=== PATIENT | male | born 1935 | race African-American/Black ===

== ENCOUNTER 2023-12-01 00:23 | Inpatient (IN) | payer MEDICARE, MEDICAID ==
[~2023-12-01] VITALS: Ht 188 cm; Wt 68.0 kg
[~2023-12-01 00:23] MED LIST: AMLO10TA80 MT; ASPI-1497 MT; DILT30TA37 PO; DOXA4TAB3 MT; LOSA-20 MT
[2023-12-01] MEDS: ONDANSETRON HCL 4MG/2ML INJ IV STA (00:24)
[2023-12-01] MEDS: SODIUM CHLORIDE 0.9% 1,000 ML IV ONE (00:30)
[2023-12-01 00:36] VITALS: O2SAT 98
[2023-12-01 00:53] LABS: BASOPHILS % 0.7 % (0.0-2.0); EOSINOPHILS % 0.4 % (0.0-5.0); HEMATOCRIT. 37.5 % (42.0-52.0); HEMOGLOBIN. 12.8 g/dL (14.0-18.0); LYMPHOCYTES % 16.4 % (20.0-50.0); MEAN CORPUSCULAR HEMOGLOBIN 32.5 pg (28.0-32.0); MEAN CORPUSCULAR VOLUME 95.4 fL (80.0-94.0); MEAN PLATELET VOLUME 8.8 fl (7.4-10.4); MONOCYTES % 4.6 % (2.0-8.0); NEUTROPHILS % 77.9 % (40.0-76.0); PLATELET 199 x1000/uL (130-400); RED BLOOD CELL COUNT 3.93 mill/uL (4.7-6.1); RED CELL DISTRIBUTION WIDTH 13.9 % (11.6-14.6); WHITE BLOOD COUNT 6.5 x1000/uL (4.5-11.0)
[2023-12-01 00:58] LABS: CHLORIDE 101 mEq/L (98-107); SODIUM 142 mEq/L (136-145)
[2023-12-01 00:59] LABS: CARBON DIOXIDE 30 mEq/L (21-32)
[2023-12-01 01:00] LABS: CALCIUM 10.5 mg/dL (8.7-10.4)
[2023-12-01 01:04] LABS: CREATININE 1.1 mg/dL (0.6-1.3); GLUCOSE 196 mg/dL (70-105); UREA NITROGEN BLOOD 19 mg/dL (9-23)
[2023-12-01 01:05] LABS: TROPONIN I HIGH SENSITIVITY 14 ng/L (3.0-53)
[2023-12-01 01:15] LABS: POTASSIUM 2.8 mEq/L (3.5-5.1)
[2023-12-01 01:33] LABS: INR 1.2; PROTHROMBIN TIME 13.3 sec (9.6-11.0)
[2023-12-01] MEDS: KCL 20MEQ/100ML PREMIX 100 ML IV NR ×3 (04:00→15:34)
[2023-12-01 04:21] LABS: CLARITY URINE CLEAR (CLEAR); COLOR URINE YELLOW (YELLOW); GLUCOSE URINE 1+ (NEGATIVE); KETONES URINE TRACE (NEGATIVE); LEUKOCYTE ESTERASE URINE NEGATIVE (NEGATIVE); NITRITE URINE NEGATIVE (NEGATIVE); OCCULT BLOOD URINE NEGATIVE (NEGATIVE); PROTEIN URINE 1+ (NEGATIVE); SPECIFIC GRAVITY URINE 1.017 (1.005-1.030); UROBILINOGEN URINE 0.2 E.U./dL (0.2-1.0)
[2023-12-01 04:35] LABS: BACTERIA URINE 1+; SQUAMOUS EPITHELIAL CELL URINE NONE SEEN /lpf (RARE/1+); WBC URINE 0-2 /hpf (0-2)
[2023-12-01 04:36] LABS: MUCUS URINE 1+ /lpf (NONE/TRACE)
[2023-12-01] MEDS: ACETAMINOPHEN 1000MG/100ML 100 ML IV ONE (05:28)
[2023-12-01] MEDS: MORPHINE SULFATE 4 MG/ML INJ (FOR IV/IM USE) IV ONE (05:29)
[2023-12-01] MEDS: ONDANSETRON HCL 4MG/2ML INJ IV ONE (05:29)
[2023-12-01] MEDS: DIATR MEGLU/DIATRIZOATE SOLN 120ML ONE (08:21)
[2023-12-01] MEDS ORDERED: ACETAMINOPHEN 325MG TABLET PO PRN (11:00)
[2023-12-01] MEDS ORDERED: CLONIDINE 0.1MG TABLET PO PRN (11:00)
[2023-12-01] MEDS ORDERED: ONDANSETRON HCL 4MG/2ML INJ IV PRN (11:00)
[2023-12-01] MEDS ORDERED: DEXTROSE 50% WATER 50ML SYRINGE IV PRN (11:00)
[2023-12-01] MEDS ORDERED: DEXT 5%/0.45% NACL 1000ML 1,000 ML IV SCH (11:00)
[2023-12-01] MEDS ORDERED: IPRATROPIUM/ALBUTEROL 0.5-3(2.5)MG/3ML NEB HHN PRN (11:00)
[2023-12-01] MEDS ORDERED: DOCUSATE SODIUM 100MG CAPSULE PO PRN (11:00)
[2023-12-01] MEDS: PANTOPRAZOLE SODIUM 40 MG/VIAL IV SCH (11:16)
[2023-12-01] MEDS: BLOOD SUGAR DIAGNOSTIC STRIP TEST SCH (11:49)
[2023-12-01] MEDS: INSULIN LISPRO 100 UNITS/ML SUBCUT SCH (11:50)
[2023-12-01] MEDS ORDERED: SODIUM CHL 0.45% + KCL 20MEQ/L 1,000 ML IV SCH (12:30)
[2023-12-01] MEDS ORDERED: LACTULOSE 20G/30ML UDC PO PRN (12:45)
[2023-12-01] MEDS: DEXT 5%/0.45% NACL KCL 20MEQ/L 1,000 ML IV SCH (13:27)
[2023-12-01 14:30] VITALS: BP 128/77; PULSE 74; RESP 16; TEMP 98.4
[2023-12-01 16:00] VITALS: BP 125/70; PULSE 75; RESP 16; TEMP 97.9
[2023-12-01 20:00] VITALS: BP 132/79; PULSE 71; RESP 18; TEMP 97.5
[2023-12-01 21:30] LABS: CHLORIDE 101 mEq/L (98-107); POTASSIUM 3.1 mEq/L (3.5-5.1); SODIUM 141 mEq/L (136-145)
[2023-12-01 21:31] LABS: CARBON DIOXIDE 32 mEq/L (21-32)
[2023-12-01 21:32] LABS: CALCIUM 9.8 mg/dL (8.7-10.4)
[2023-12-01 21:36] LABS: CREATININE 0.9 mg/dL (0.6-1.3); GLUCOSE 95 mg/dL (70-105)
[2023-12-01 21:37] LABS: UREA NITROGEN BLOOD 14 mg/dL (9-23)
[2023-12-01 21:39] LABS: PHOSPHORUS 2.5 mg/dL (2.5-4.9)
[2023-12-02] VITALS: BP 121/80; PULSE 65; RESP 18; TEMP 97.7
[2023-12-02 04:00] VITALS: BP 137/90; PULSE 74; RESP 17; TEMP 97.7
[2023-12-02 07:05] LABS: BASOPHILS % 0.7 % (0.0-2.0); DIFFERENTIAL COMMENT 0; EOSINOPHILS % 2.3 % (0.0-5.0); HEMATOCRIT. 38.5 % (42.0-52.0); LYMPHOCYTES % 17.9 % (20.0-50.0); MEAN CORPUSCULAR HEMOGLOBIN 31.7 pg (28.0-32.0); MEAN CORPUSCULAR HGB CONC 33.8 g/dL (31.0-37.0); MEAN CORPUSCULAR VOLUME 93.6 fL (80.0-94.0); MEAN PLATELET VOLUME 8.9 fl (7.4-10.4); MONOCYTES % 10.4 % (2.0-8.0); NEUTROPHILS % 68.7 % (40.0-76.0); PLATELET 194 x1000/uL (130-400); RED BLOOD CELL COUNT 4.11 mill/uL (4.7-6.1); WHITE BLOOD COUNT 5.3 x1000/uL (4.5-11.0)
[2023-12-02 07:19] LABS: CHLORIDE 102 mEq/L (98-107); POTASSIUM 3.2 mEq/L (3.5-5.1); SODIUM 142 mEq/L (136-145)
[2023-12-02 07:20] LABS: CALCIUM 10.3 mg/dL (8.7-10.4); CARBON DIOXIDE 33 mEq/L (21-32)
[2023-12-02 07:25] LABS: GLUCOSE 92 mg/dL (70-105); UREA NITROGEN BLOOD 14 mg/dL (9-23)
[2023-12-02 08:00] VITALS: BP 122/80; PULSE 61; RESP 18; TEMP 100.6
[2023-12-02] MEDS ORDERED: POTASSIUM CHLORIDE 40 MEQ in DEXT 5% WATER 230 ML IV ONE (09:45)
[2023-12-02] MEDS: ACETAMINOPHEN 325MG TABLET PO PRN (10:01)
[2023-12-02] MEDS: TAMSULOSIN HCL 0.4MG SR CAPSULE PO SCH (10:08)
[2023-12-02] MEDS: MAGNESIUM 1 G PREMIX 100 ML IV NR (11:18)
[2023-12-02 12:00] VITALS: BP 126/89; PULSE 74; RESP 20; TEMP 99.1
[2023-12-02] MEDS: KCL 20MEQ/100ML X 2 FOR TOTAL KCL 40MEQ/200ML IV SCH (13:00)
[2023-12-02] MEDS: POTASSIUM CHLORIDE 40 MEQ in SODIUM CHLORIDE 0.45% 1,000 ML IV SCH (13:59)
[2023-12-02] MEDS: LEVOFLOXACIN 750MG PREMIX 150 ML IV SCH (14:00)
[2023-12-02] MEDS: METRONIDAZOLE 500 MG PREMIX 100 ML IV SCH (14:01)
[2023-12-02 16:00] VITALS: BP 122/83; PULSE 72; RESP 18; TEMP 100.2
[2023-12-02 17:08] LABS: *AMPHETAMINES SCREEN URINE NEGATIVE (NEGATIVE); *BENZODIAZEPINES SCREEN URINE NEGATIVE (NEGATIVE); *COCAINE SCREEN URINE NEGATIVE (NEGATIVE); METHADONE URINE SCREEN NEGATIVE (NEGATIVE)
[2023-12-02 17:09] LABS: CANNABINOID URINE SCREEN NEGATIVE (NEGATIVE); ECSTASY MDMA SCREEN URINE NEGATIVE (NEGATIVE); OPIATES URINE SCREEN PRESUMPTIVE POSITIVE (NEGATIVE); PHENCYCLIDINE URINE SCREEN NEGATIVE (NEGATIVE)
[2023-12-02 17:15] LABS: *BARBITURATES SCREEN URINE NEGATIVE (NEGATIVE)
[2023-12-02 20:00] VITALS: BP 113/63; PULSE 70; RESP 18; TEMP 97.9
[2023-12-03] VITALS: BP 116/64; PULSE 60; RESP 19; TEMP 97.9
[2023-12-03 04:00] VITALS: BP 116/76; PULSE 78; RESP 18; TEMP 97.5
[2023-12-03 07:27] LABS: EOSINOPHILS % 3.2 % (0.0-5.0); HEMATOCRIT. 33.7 % (42.0-52.0); HEMOGLOBIN. 11.5 g/dL (14.0-18.0); LYMPHOCYTES % 23.7 % (20.0-50.0); MEAN CORPUSCULAR HEMOGLOBIN 31.8 pg (28.0-32.0); MEAN CORPUSCULAR HGB CONC 34.2 g/dL (31.0-37.0); MEAN CORPUSCULAR VOLUME 93.1 fL (80.0-94.0); MEAN PLATELET VOLUME 9.1 fl (7.4-10.4); MONOCYTES % 9.7 % (2.0-8.0); NEUTROPHILS % 62.4 % (40.0-76.0); PLATELET 169 x1000/uL (130-400); RED BLOOD CELL COUNT 3.62 mill/uL (4.7-6.1); RED CELL DISTRIBUTION WIDTH 13.9 % (11.6-14.6); WHITE BLOOD COUNT 4.4 x1000/uL (4.5-11.0)
[2023-12-03 07:34] LABS: CARBON DIOXIDE 29 mEq/L (21-32); CHLORIDE 104 mEq/L (98-107); POTASSIUM 2.9 mEq/L (3.5-5.1); SODIUM 140 mEq/L (136-145)
[2023-12-03 07:35] LABS: CALCIUM 9.6 mg/dL (8.7-10.4)
[2023-12-03 07:40] LABS: GLUCOSE 94 mg/dL (70-105); UREA NITROGEN BLOOD 12 mg/dL (9-23)
[2023-12-03] MEDS: POTASSIUM CHLORIDE 20MEQ TABLET SR PO NR (11:15)
[2023-12-03 12:00] VITALS: BP 129/93; PULSE 74; RESP 20; TEMP 98.4
[2023-12-03 16:00] VITALS: BP 124/84; PULSE 57; RESP 20; TEMP 97.9
[2023-12-03] MEDS: DOCUSATE SODIUM 100MG CAPSULE PO SCH (17:00)
[2023-12-03 17:07] LABS: POTASSIUM 3.2 mEq/L (3.5-5.1)
[2023-12-03] MEDS: METOCLOPRAMIDE HCL 10MG/2ML VIAL IV SCH (18:19)
[2023-12-03] MEDS: MAGNESIUM 2 G PREMIX 50 ML IV NR (18:19)
[2023-12-03 20:00] VITALS: BP 118/73; PULSE 71; RESP 18; TEMP 97.7
[2023-12-04] VITALS: BP 138/84; PULSE 73; RESP 18; TEMP 98.1
[2023-12-04 04:00] VITALS: BP 131/83; PULSE 71; RESP 20; TEMP 97.5
[2023-12-04 06:25] LABS: CALCIUM 9.5 mg/dL (8.7-10.4); CARBON DIOXIDE 28 mEq/L (21-32); CHLORIDE 106 mEq/L (98-107); POTASSIUM 2.9 mEq/L (3.5-5.1); SODIUM 142 mEq/L (136-145)
[2023-12-04 06:31] LABS: CREATININE 0.8 mg/dL (0.6-1.3); GLUCOSE 83 mg/dL (70-105); UREA NITROGEN BLOOD 7 mg/dL (9-23)
[2023-12-04 06:55] LABS: BASOPHILS % 1.1 % (0.0-2.0); EOSINOPHILS % 3.9 % (0.0-5.0); HEMATOCRIT. 30.3 % (42.0-52.0); HEMOGLOBIN. 10.5 g/dL (14.0-18.0); LYMPHOCYTES % 24.2 % (20.0-50.0); MEAN CORPUSCULAR HEMOGLOBIN 32.2 pg (28.0-32.0); MEAN CORPUSCULAR HGB CONC 34.8 g/dL (31.0-37.0); MEAN CORPUSCULAR VOLUME 92.7 fL (80.0-94.0); MEAN PLATELET VOLUME 9.5 fl (7.4-10.4); MONOCYTES % 11.6 % (2.0-8.0); NEUTROPHILS % 59.2 % (40.0-76.0); PLATELET 148 x1000/uL (130-400); RED BLOOD CELL COUNT 3.27 mill/uL (4.7-6.1); RED CELL DISTRIBUTION WIDTH 13.4 % (11.6-14.6); WHITE BLOOD COUNT 4.2 x1000/uL (4.5-11.0)
[2023-12-04 08:00] VITALS: BP 139/74; PULSE 67; RESP 20; TEMP 98.7
[2023-12-04] MEDS: POTASSIUM CHLORIDE 20MEQ TABLET SR PO NR ×2 (10:22→17:32)
[2023-12-04] MEDS: MAGNESIUM 2 G PREMIX 50 ML IV SCH (11:10)
[2023-12-04 12:00] VITALS: BP 149/93; PULSE 59; RESP 18; TEMP 99
[2023-12-04] MEDS: METOCLOPRAMIDE HCL 10MG/2ML VIAL IV SCH (13:50)
[2023-12-04] MEDS ORDERED: METO5TAB86 MT (14:16)
[2023-12-04] MEDS ORDERED: DOCU-138 MT (14:16)
[2023-12-04] MEDS ORDERED: LEVO750T68 MT (14:16)
[2023-12-04 16:00] VITALS: BP 126/86; PULSE 67; RESP 20; TEMP 98
[2023-12-04 16:40] LABS: POTASSIUM 3.4 mEq/L (3.5-5.1)
[2023-12-04 19:23] VITALS: BP 125/72; PULSE 68; TEMP 98
== END 2023-12-04 20:35 | disposition home or self-care (01) | DRG 391 ==
LOC: ER 00:23 → 5WST 04:04 → EDBEDREQ 04:18 → EDBEDREQTM 04:18 → 8WST 14:26
PROVIDERS: ADMIT Internal Medicine; ATTEND Internal Medicine
DX: K59.81 Ogilvie syndrome (principal); K56.2 Volvulus; K56.7 Ileus, unspecified; E87.20 Acidosis, unspecified; D64.9 Anemia, unspecified; I10 Essential (primary) hypertension; E83.42 Hypomagnesemia; E83.52 Hypercalcemia; E87.6 Hypokalemia; I25.10 Atherosclerotic heart disease of native coronary artery without angina pectoris; I45.10 Unspecified right bundle-branch block; N40.0 Benign prostatic hyperplasia without lower urinary tract symptoms; R73.9 Hyperglycemia, unspecified; Z79.82 Long term (current) use of aspirin
CPT/HCPCS: 36415; 71045; 74018; 74176; 80048; 80305; 81003; 82962; 83036; 83605; 83735; 84100; 84132; 84145; 84484; 85025; 93005; 93306; 99285; C9113; J1956; J2270; J2405; J2765; J3475; J3480; J3490; J7030; Q9963; J0131